=== PATIENT | male | born 1955 | race Caucasian/White ===

== ENCOUNTER 2017-08-13 16:41 | Emergency (ER) | payer SELFPAY ==
[2017-08-13 16:50] VITALS: RESP 16; TEMP 97.7
--- NOTE | 2017-08-13 17:26 | EDPHY ---
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 He states that on Wednesday he was coming down off of a ladder and fell from about the 3rd rung onto his chest on top of a wooden window well. He has had pain in his chest since that time and also complains of pain in his left knee. It is quite swollen. He is able to ambulate but is getting more swollen and more painful. No fever or erythema. No lacerations or abrasions. REVIEW OF SYSTEMS: Constitutional: denies: chills, fever, recent illness, recent injury EENTM: denies: blurred vision, double vision, nose congestion Respiratory: denies: cough, shortness of breath Cardiac: denies: chest pain, irregular heart rate, lightheadedness, palpitations Gastrointestinal/Abdominal: denies: abdominal pain, diarrhea, nausea, vomiting, blood streaked stools Genitourinary: denies: dysuria, frequency, hematuria, pain Musculoskeletal: See HPI Skin: denies: lesions, rash, jaundice, bruising Neurological: denies: headache, numbness, paresthesia, tingling, dizziness, weakness Hematologic/Lymphatic: denies: blood clots, easy bleeding, easy bruising Immunologic/allergic: denies: HIV/AIDS, transplant EXAM: GENERAL: Well-appearing, well-nourished and in no acute distress. HEAD: Atraumatic, normocephalic. EYES: Pupils equal round and reactive to light, extraocular movements intact, sclera anicteric, conjunctiva are normal. ENT: TMs normal, nares patent, oropharynx clear without exudates. Moist mucous membranes. NECK: Normal range of motion, supple without lymphadenopathy or JVD. LUNGS: Breath sounds clear to auscultation bilaterally and equal. No wheezes rales or rhonchi. HEART: Contusion to sternum region, Regular rate and rhythm without murmurs, rubs or gallops. ABDOMEN: Soft, nontender, normoactive bowel sounds. No guarding, no rebound. No masses appreciated. BACK: No CVA tenderness, no spinal tenderness, step-offs or deformities EXTREMITIES: Left knee significant effusion, mildly tender to touch. Slightly warm. Small visible abrasion to medial upper aspect of kneecap. Psoriasis visible but chronic. NEUROLOGICAL: Cranial nerves II through XII grossly intact. Normal speech, normal gait. 5/5 strength, normal movement in all extremities, normal sensation PSYCH: Normal mood, normal affect. SKIN: Warm, dry, normal turgor, chronic psoriasis Source: Patient Exam Limitations: No limitations - Personal History Current Tetanus Diphtheria and Acellular Pertussis (TDAP): Yes - Medical/Surgical History Hx Asthma: No Hx Chronic Respiratory Disease: No Hx Diabetes: No Hx Cardiac Disease: No Hx Renal Disease: No Hx Cirrhosis: No Other PMH: ORTHO SURGERY - Social History Smoking Status: Current every day smoker Alcohol Use: Sober Drug Use: None Constitutional: Initial Vital Signs Temperature (C) 36.5 C 08/13/17 16:46 Heart Rate 94 08/13/17 16:46 Respiratory Rate 16 08/13/17 16:46 Blood Pressure 125/78 H 08/13/17 16:46 O2 Sat (%) 91 L 08/13/17 16:46 O2 Delivery Mode Room Air Allergies/Adverse Reactions: amoxicillin Allergy (Verified 08/13/17 16:46) Home Medications: Medication Instructions Recorded Cephalexin [Keflex] 500 mg PO TID #21 cap 08/13/17 Medical Decision Making - Diagnostics Imaging Results: Imaging Impressions Knee X-Ray 08/13/17 17:07 Impression: Marked soft tissue swelling. Imaging: Discussed imaging studies w/ chief radiation therapist Radiologist Procedures: Arthrocentesis: Patient's left knee was prepped and draped in sterile fat. His skin was numbed laterally with 3 cc of lidocaine. The joint space was entered with an 18 gauge needle. No significant fluid was aspirated. I was careful to avoid any cellulitic regions. Patient had significant pain and therefore I discontinue the procedure. ED Course/Re-evaluation: I suspect the patient may have a mild cellulitis. He has an abrasion to knee with some erythema near it. It is very tender. Minimal effusions seen on imaging. A did attempt arthrocentesis through non cellulitic area although I was unsuccessful in obtaining any fluid. I will start the patient on Keflex. He does not have diabetes or immunosuppression. We discussed possibly admitting him for this but he is currently well-appearing of like to try home therapy 1st. 6:50 p.m. the patient and his would like to leave AMA. He has not received his IV antibiotics. He has not yet had a CT scan of his chest. He states that he has not eaten all day and neither has his and she is diabetic. We discussed options. He persists in wanting to leave. I will give him a dose of Keflex now prescription. I gave him strict return precautions. I am concerned that his cellulitis may worsen and require admission. The he understands this. The patient eventually did agree to stay for IV antibiotics but refused further imaging or workup or admission. Differential Diagnosis: Partial list of the Differential diagnosis considered include but were not limited to; cellulitis, effusion, fracture, sternal injury, rib fracture and although unlikely based on the history and physical exam, I also considered pneumothorax, mediastinal injury, tibial plateau fracture. I discussed these differential diagnoses and the plan with the patient as well as the usual and expected course. The patient understands that the diagnosis is provisional and that in medicine we are not always correct and that further workup is often warranted. Usual and customary warnings were given. All of the patient's questions were answered. The patient was instructed to return to the emergency department should the symptoms at all worsen or return, otherwise to followup with the physician as we discussed. - Data Points Laboratory Results: Laboratory Results 08/13/17 18:20 08/13/17 18:20 08/13/17 08/13/17 18:20 18:20 WBC 15.66 10^3/uL H 10^3/uL (3.80-9.50) RBC 5.20 10^6/uL 10^6/uL (4.40-6.38) Hgb 17.1 g/dL g/dL (13.7-17.5) Hct 48.0 % % (40.0-51.0) MCV 92.3 fL fL (81.5-99.8) MCH 32.9 pg pg (27.9-34.1) MCHC 35.6 g/dL g/dL (32.4-36.7) RDW 13.2 % % (11.5-15.2) Plt Count 206 10^3/uL 10^3/uL (150-400) MPV 9.2 fL fL (8.7-11.7) Neut % (Auto) 85.1 % H % (39.3-74.2) Lymph % (Auto) 7.2 % L % (15.0-45.0) Knott % (Auto) 6.8 % % (4.5-13.0) Eos % (Auto) 0.4 % L % (0.6-7.6) Baso % (Auto) 0.1 % L % (0.3-1.7) Nucleat RBC Rel Count 0.0 % % (0.0-0.2) Absolute Neuts (auto) 13.31 10^3/uL H 10^3/uL (1.70-6.50) Absolute Lymphs (auto) 1.12 10^3/uL 10^3/uL (1.00-3.00) Absolute Monos (auto) 1.07 10^3/uL H 10^3/uL (0.30-0.80) Absolute Eos (auto) 0.07 10^3/uL 10^3/uL (0.03-0.40) Absolute Basos (auto) 0.02 10^3/uL 10^3/uL (0.02-0.10) Absolute Nucleated RBC 0.00 10^3/uL 10^3/uL (0-0.01) Immature Gran % 0.4 % % (0.0-1.1) Immature Gran # 0.07 10^3/uL 10^3/uL (0.00-0.10) Sodium 141 mEq/L mEq/L (134-144) Potassium 4.4 mEq/L mEq/L (3.5-5.2) Chloride 104 mEq/L mEq/L (97-110) Carbon Dioxide 24 mEq/l mEq/l (22-31) Anion Gap 13 mEq/L mEq/L (8-16) BUN 16 mg/dL mg/dL (7-23) Creatinine 0.8 mg/dL mg/dL (0.7-1.3) Estimated GFR > 60 Glucose 100 mg/dL mg/dL (70-100) Calcium 9.5 mg/dL mg/dL (8.5-10.4) Medications Given: Discontinued Medications Cephalexin HCl (Keflex) 500 mg PO EDNOW ONE PRN Reason: Protocol Stop: 08/13/17 18:51 Last Admin: 08/13/17 19:16 Dose: 500 mg Ceftriaxone Sodium/Dextrose (Rocephin 1 Gm (Premix)) 50 mls @ 100 mls/hr IV EDNOW ONE PRN Reason: Protocol Stop: 08/13/17 19:05 Last Admin: 08/13/17 19:16 Dose: 50 mls Departure - Departure Disposition: Home, Routine, Self-Care Clinical Impression: Cellulitis of knee, left Condition: Fair Instructions: Cellulitis (ED) Referrals: NONE *PRIMARY CARE P,. [Primary Care Provider] - As per Instructions Concepcion Catalan MD [Medical Doctor] - As per Instructions ED,PHYSICIAN PHIL [Medical Doctor] - 1 day, if not improved Prescriptions: Cephalexin [Keflex] 500 mg PO TID #21 cap
[2017-08-13 18:30] LABS: % IMMATURE GRANULYOCYTES 0.4 % (0.0-1.1); ABSOLUTE IMMATURE GRANULOCYTES 0.07 10^3/uL (0.00-0.10); ADD DIFF? NO; ADD MORPH? NO; ADD SCAN? NO; ATYPICAL LYMPHOCYTE FLAG 0 (0-99); FRAGMENT RBC FLAG 0 (0-99); HEMOGLOBIN 17.1 g/dL (13.7-17.5); LEFT SHIFT FLG 0 (0-99); LIPEMIA HEMOLYSIS FLAG 90 (0-99); MEAN CELL HEMOGLOBIN 32.9 pg (27.9-34.1); MEAN CELL HEMOGLOBIN CONCENTR. 35.6 g/dL (32.4-36.7); MEAN CELL VOLUME 92.3 fL (81.5-99.8); MEAN PLATELET VOLUME 9.2 fL (8.7-11.7); PLATELET CLUMPS FLAG 10 (0-99); PLATELET COUNT 206 10^3/uL (150-400); RED CELL DISTRIBUTION WIDTH 13.2 % (11.5-15.2)
[2017-08-13] MEDS ORDERED: CEPHALEXIN 500 MG CAP PO ONE (18:50)
[2017-08-13 18:53] LABS: ANION GAP 13 mEq/L (8-16); CALCIUM 9.5 mg/dL (8.5-10.4); CARBON DIOXIDE 24 mEq/l (22-31); CHLORIDE 104 mEq/L (97-110); CREATININE 0.8 mg/dL (0.7-1.3); GLOMERULAR FILTRATION RATE > 60; GLUCOSE 100 mg/dL (70-100); POTASSIUM 4.4 mEq/L (3.5-5.2); SODIUM 141 mEq/L (134-144)
[2017-08-13 19:18] VITALS: BP 111/71; PULSE 81; O2SAT 98
== END 2017-08-13 19:18 | disposition home or self-care (01) ==
PROC: 0M9P3ZZ Drainage of Left Knee Bursa and Ligament, Percutaneous Approach (ICD-10-PCS; principal; 2017-08-13)
DX: L03.116 Cellulitis of left lower limb (principal); F17.200 Nicotine dependence, unspecified, uncomplicated; W11.XXXA Fall on and from ladder, initial encounter
CPT/HCPCS: 96374; J0696